=== PATIENT | male | born 1955 | race Caucasian/White ===

== ENCOUNTER 2017-03-22 21:27 | Emergency (ER) | payer MEDICAID, OTHER ==
[~2017-03-22 21:27] MED LIST: HYDR25SU4 PR; LEVO125T3 PO; METHO500 PO; XANA0.5T PO
[2017-03-22 21:43] VITALS: BP 118/79; PULSE 59; RESP 16; TEMP 97.6; O2SAT 96
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
== END 2017-03-22 23:38 | disposition home or self-care (01) ==
LOC: MERGE 21:27 → NEPD 21:27
DX: S00.90XA Unspecified superficial injury of unspecified part of head, initial encounter (principal); Z72.0 Tobacco use; W07.XXXA Fall from chair, initial encounter; Y93.84 Activity, sleeping
CPT/HCPCS: 70450; 72125; 99285

== ENCOUNTER 2017-03-24 14:20 | Emergency (ER) | payer MEDICAID, OTHER ==
[~2017-03-24] VITALS: Ht 170.2 cm; Wt 55.0 kg
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
[2017-03-24 14:43] VITALS: BP 113/62; PULSE 104; RESP 20; TEMP 98.9; O2SAT 99
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
[2017-03-24] MEDS ORDERED: KETOROLAC TROMETHAMINE 60 MG/2 ML (IM) VIAL IM ONE (15:15)
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
[2017-03-24] MEDS ORDERED: LIDOCAINE HCL 2% 20 ML VIAL INFIL ONE (15:45)
[2017-03-24] MEDS ORDERED: AZITHROMYCIN 250 MG TAB PO ONE (15:45)
[2017-03-24] MEDS ORDERED: TRAM50TA PO (16:19)
[2017-03-24] MEDS ORDERED: AZIT250T3 PO (16:19)
[2017-03-24] MEDS ORDERED: PRED20 PO (16:19)
== END 2017-03-24 16:45 | disposition home or self-care (01) ==
LOC: NEPK 14:20 → MERGE 14:20 → NEPK 16:45
DX: J18.1 Lobar pneumonia, unspecified organism (principal); Z72.0 Tobacco use
CPT/HCPCS: 71101; 96372; 99284; J0696; J1885

== ENCOUNTER 2017-03-26 10:55 | Emergency (ER) | payer MEDICAID ==
[~2017-03-26] VITALS: Ht 170.2 cm; Wt 56.0 kg
[~2017-03-26 10:55] MED LIST changes: +AZIT250T3 PO; +PRED20 PO; +TRAM50TA PO
[2017-03-26 10:56] VITALS: BP 119/71; PULSE 99; RESP 20; TEMP 98.4; O2SAT 98
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
[2017-03-26] MEDS ORDERED: LEVO.125 PO (13:52)
[2017-03-26] MEDS ORDERED: IBUP400T20 PO (13:52)
== END 2017-03-26 14:00 | disposition home or self-care (01) ==
LOC: MERGE 10:55 → NEPD 10:55
DX: M25.511 Pain in right shoulder (principal); Z76.0 Encounter for issue of repeat prescription
CPT/HCPCS: 73030; 99283

== ENCOUNTER 2017-07-17 14:22 | Emergency (ER) | payer MEDICAID ==
[~2017-07-17] VITALS: Ht 170.2 cm; Wt 59.0 kg
[~2017-07-17 14:22] MED LIST changes: +IBUP1TAB5 PO; +LEVO.125 PO
[2017-07-17 14:24] VITALS: BP 130/78; PULSE 94; RESP 18; TEMP 98.3; O2SAT 96
[2017-07-17] MEDS ORDERED: AZIT500T2 PO (15:18)
--- NOTE | 2017-07-17 15:19 | PD ---
HPI Chief Complaint: Cold / Flu Symptoms Time Seen by Provider: 15:13 Travel History International Travel<30 days: No Contact w/Intl Traveler<30days: No Traveled to known affect area: No History of Present Illness HPI 62-year-old male presents to emergency Department with complaint of headache, body aches, nasal congestion, cough 3 days. Patient requesting antibiotics. Report subjective fever yesterday, but none today. Denies chest tightness, chest pain, shortness of breath, wheezing. Denies abdominal pain, vomiting. No known sick contacts. Has not taken any medications or tried any treatments To alleviate his symptoms. Symptoms are mild in severity. Allergies to sulfa. Dr. Lafleur primary care provider and he has an appointment on Friday. Denies significant past medical history. Has no other medical complaints. No other modifying factors or associated signs and symptoms. PFSH Past Medical History Arthritis: Yes Diminished Hearing: No Gout: Yes Social History Alcohol Use: Yes Tobacco Use: Yes Substance Use: No Allergies-Medications (Allergen,Severity, Reaction): Coded Allergies: Sulfa (Sulfonamide Antibiotics) (Unverified Allergy, Severe, HANDS BLISTER , 02/12/17) Reported Meds & Prescriptions Reported Meds & Active Scripts Active Azithromycin 500 Mg Tab 500 Mg PO DAILY Ibuprofen 400 Mg Tab 400 Mg PO Q6H PRN Synthroid (Levothyroxine Sodium) 125 Mcg Tab 125 Mcg PO DAILY Tramadol (Tramadol HCl) 50 Mg Tab 50 Mg PO Q6H PRN Prednisone 20 Mg Tab 20 Mg PO BID 5 Days Azithromycin 250 Mg Tab 250 Mg PO DIRECTED Take 2 tabs (500 mg) on day 1 then 1 tab daily x 4 days. Anucort-Hc (Hydrocortisone Acetate (Rectal) 25 Mg Sup 25 Mg ND BID PRN Robaxin 500 Mg Tab (Methocarbamol) 500 Mg Tab 500 Mg PO TID PRN Reported Levothyroxine 125 mcg (Levothyroxine Sodium) 125 Mcg Tab 1 Tab PO DAILY Xanax 0.5 mg (Alprazolam) Alprazolam 0.5 mg Tab 1 Tab PO Q6H PRN Review of Systems Except as stated in HPI: all other systems reviewed are Neg Physical Exam Narrative GENERAL: Well-nourished, well-developed male patient, in no acute distress; afebrile, nontoxic-appearing SKIN: Warm and dry. No rash. HEAD: Atraumatic. Normocephalic. EYES: Pupils equal and round. No scleral icterus. No injection or drainage. ENT: Mucosa pink and moist. No erythema or exudates. No uvular edema. No uvular , palatal, or tonsillar deviation. Airway patent. EARS: Bilateral pinnae and external canals appear within normal limits. Bilateral tympanic membranes without erythema, dullness or perforation. NECK: Trachea midline. No lymphadenopathy. CARDIOVASCULAR: Regular rate and rhythm. No murmur appreciated. RESPIRATORY: No accessory muscle use. Clear to auscultation. Breath sounds equal bilaterally. No retractions or tachypnea. GASTROINTESTINAL: Abdomen soft, non-tender, nondistended. Hepatic and splenic margins not palpable. Bowel sounds are active 4 quadrants. MUSCULOSKELETAL: No obvious deformities. No clubbing. No cyanosis. No edema. NEUROLOGICAL: Awake and alert. Oriented 3. No obvious cranial nerve deficits. Motor grossly within normal limits. Normal speech. Moves all extremities. 5/5 strength to all extremities. PSYCHIATRIC: Appropriate mood and affect; insight and judgment normal. Data Data Last Documented VS Vital Signs Date Time Temp Pulse Resp B/P (MAP) Pulse Ox O2 Delivery O2 Flow Rate FiO2 07/17/17 14:24 98.3 94 18 130/78 (95) 96 Orders Orders Ed Discharge Order (07/17/17 15:19) [facility] Medical Decision Making Medical Screen Exam Complete: Yes Emergency Medical Condition: Yes Medical Record Reviewed: Yes Differential Diagnosis Viral illness, URI, influenza Narrative Course 62-year-old male with cold/flu symptoms. He is requesting antibiotics. I discussed viral illness and symptoms management and he just came for antibiotics. I ordered a flu screen and he declined. Says he needs to get a prescription for antibiotics to catch the bus. He has an appointment with his primary care provider, Dr. Lafleur, on Friday. Azithromycin prescribed for home. Instructed patient to follow up with primary care provider. Patient verbalizes understanding and agreement with treatment plan. Patient is medically cleared and stable for discharge. Discussed reasons to return to the emergency department. Patient agrees with treatment plan. The patients vital signs are stable and the patient is stable for outpatient follow-up and treatment. Patient discharged home, stable and in no acute distress. Diagnosis Primary Impression: Upper respiratory infection Qualified Codes: J06.9 - Acute upper respiratory infection, unspecified Referrals: Primary Care Physician Patient Instructions: General Instructions, Upper Respiratory Infection (ED) Additional Instructions: Antibiotics as prescribed and complete full course Ibuprofen or Tylenol as instructed and as needed for fever/pain Vamh-sly-avvnzha cough and cold medications as directed and as needed for symptom management Get plenty of sleep/rest Drink plenty of fluids to prevent dehydration; popsicles and Gatorade Use an air humidifier/turn off ceiling fans Follow-up with primary care provider Return immediately to the emergency department with worsening of symptoms Med/Other Pt SpecificInfo: Prescription(s) given Scripts Azithromycin (Azithromycin) 500 Mg Tab 500 MG PO DAILY for Infection, #5 TAB 0 Refills Prov: Mariella Hood 07/17/17 Disposition: 01 DISCHARGE HOME Condition: Stable Mariella Hood Jul 17, 2017 15:19
== END 2017-07-17 15:38 | disposition home or self-care (01) ==
LOC: NEPK 14:22
DX: J06.9 Acute upper respiratory infection, unspecified (principal); Z72.0 Tobacco use
CPT/HCPCS: 99283

== ENCOUNTER 2017-08-08 08:25 | Emergency (ER) | payer MEDICAID ==
[~2017-08-08] VITALS: Ht 170.2 cm; Wt 60.0 kg
[~2017-08-08 08:25] MED LIST changes: +AZIT500T2 PO
[2017-08-08 08:29] VITALS: BP 117/70; PULSE 86; RESP 16; TEMP 97.8; O2SAT 97
[2017-08-08] MEDS ORDERED: HYDR-3583 PO (08:44)
[2017-08-08] MEDS ORDERED: ALPR0.5T3 PO (08:44)
--- NOTE | 2017-08-08 08:48 | PD ---
HPI Chief Complaint: Cold / Flu Symptoms Time Seen by Provider: 08:42 Travel History International Travel<30 days: No Contact w/Intl Traveler<30days: No Traveled to known affect area: No History of Present Illness HPI 62-year-old male here with cough, congestion, intermittent fevers. Symptoms have been ongoing for 5 days. He reports maximal temperature 100.1 degrees yesterday. Cough is productive with yellow sputum. Denies any shortness of breath, sore throat, abdominal pain, nausea or vomiting. He was seen in mid June with similar symptoms, prescribed azithromycin which she completed. Symptoms resolved but then returned 5 days ago. He has no other complaints at this time. [facility] Past Medical History Arthritis: Yes Diminished Hearing: No Gout: Yes Thyroid Disease: Yes Influenza Vaccination: No Past Surgical History Surgical History: No Previous Surgery Social History Alcohol Use: No Tobacco Use: No Substance Use: No Allergies-Medications (Allergen,Severity, Reaction): Coded Allergies: Sulfa (Sulfonamide Antibiotics) (Unverified Allergy, Severe, HANDS BLISTER , 08/08/17) Reported Meds & Prescriptions Reported Meds & Active Scripts Active Azithromycin 500 Mg Tab 500 Mg PO DAILY Ibuprofen 400 Mg Tab 400 Mg PO Q6H PRN Synthroid (Levothyroxine Sodium) 125 Mcg Tab 125 Mcg PO DAILY Tramadol (Tramadol HCl) 50 Mg Tab 50 Mg PO Q6H PRN Prednisone 20 Mg Tab 20 Mg PO BID 5 Days Azithromycin 250 Mg Tab 250 Mg PO DIRECTED Take 2 tabs (500 mg) on day 1 then 1 tab daily x 4 days. Reported Hydrocodone-Acetaminophen 10-325 mg Tab 1 Tab PO Q6H PRN Alprazolam 0.5 Mg Tab 0.5 Mg PO Q6H PRN Review of Systems Except as stated in HPI: all other systems reviewed are Neg Physical Exam Narrative GENERAL: Well-developed well-nourished male in no acute distress SKIN: Warm and dry. HEAD: Atraumatic. Normocephalic. EYES: Pupils equal and round. No scleral icterus. No injection or drainage. ENT: No nasal bleeding or discharge. Mucous membranes pink and moist. NECK: Trachea midline. No JVD. CARDIOVASCULAR: Regular rate and rhythm. No murmur appreciated. RESPIRATORY: No accessory muscle use. Clear to auscultation. Breath sounds equal bilaterally. GASTROINTESTINAL: Abdomen soft, non-tender, nondistended. Hepatic and splenic margins not palpable. Data Data Last Documented VS Vital Signs Date Time Temp Pulse Resp B/P (MAP) Pulse Ox O2 Delivery O2 Flow Rate FiO2 08/08/17 08:46 18 Room Air 08/08/17 08:29 97.8 86 117/70 (86) 97 Orders Orders Influenzae A/B Antigen (08/08/17 08:45) Chest, Single Ap (08/08/17 ) Ed Discharge Order (08/08/17 09:55) MDM Medical Decision Making Medical Screen Exam Complete: Yes Emergency Medical Condition: Yes Medical Record Reviewed: Yes Differential Diagnosis Influenza, pneumonia, bronchitis, sinusitis Narrative Course The patient appears well. A chest x-ray and influenza antigen test were performed and they are both negative. He appears to have a viral bronchitis. Supportive care is recommended. He is stable for discharge. Diagnosis Primary Impression: Acute bronchitis Additional Instructions: Stay well-hydrated and well-nourished. Take [id number] cough and cold medications for symptom treatment. Return for any emergent medical conditions. Med/Other Pt SpecificInfo: No Change to Meds Disposition: 01 DISCHARGE HOME Condition: Stable Griffin Ruiz Aug 08, 2017 08:48
--- NOTE | 2017-08-08 09:43 | RADRPT ---
EXAM DATE/TIME: 08/08/2017 08:48 [facility] COMPARISON: CHEST SINGLE AP, August 01, 2016, 19:52. INDICATIONS : Cough and congestion. MEDICAL HISTORY : None. SURGICAL HISTORY : None. ENCOUNTER: Initial ACUITY: 3 days PAIN SCORE: 0/10 LOCATION: Bilateral chest FINDINGS: Calcified granuloma is again noted within the left upper lung field. No focal infiltrate is noted. No pulmonary edema is noted the heart is normal. Degenerative changes and scoliosis of the thoracic spi ne are noted. CONCLUSION: 1. No acute cardiopulmonary disease. 2. Degenerative changes and scoliosis of the thoracic spine. Jose Kincaid MD on August 08, 2017 at 9:40 Board Certified Radiologist. This report was verified electronically.
== END 2017-08-08 10:07 | disposition home or self-care (01) ==
LOC: NEPD 08:25
DX: J20.9 Acute bronchitis, unspecified (principal); M19.90 Unspecified osteoarthritis, unspecified site; E07.9 Disorder of thyroid, unspecified
CPT/HCPCS: 71045; 87804; 99284

== ENCOUNTER 2017-11-03 09:35 | Emergency (ER) | payer OTHER, MEDICAID ==
[~2017-11-03] VITALS: Ht 170.2 cm; Wt 50.0 kg
[~2017-11-03 09:35] MED LIST changes: +ALPR0.5T3 PO; +HYDR-3583 PO; -HYDR25SU4 PR; -LEVO125T3 PO; -METHO500 PO; -XANA0.5T PO
[2017-11-03 09:38] VITALS: BP 119/67; PULSE 95; RESP 19; TEMP 98; O2SAT 97
[2017-11-03 10:24] VITALS: PULSE 94; RESP 18; O2SAT 98
--- NOTE | 2017-11-03 11:22 | RADRPT ---
EXAM DATE/TIME: 11/03/2017 10:55 [facility] COMPARISON: Chest x-ray July 14, 2014. INDICATIONS : Palpable lump on upper left chest. MEDICAL HISTORY : Smoker. SURGICAL HISTORY : None. ENCOUNTER: Initial ACUITY: 2 weeks PAIN SCORE: 10/10 LOCATION: Left chest FINDINGS: PA and lateral views the chest show lungs to be hyperaerated. No infiltrate or effusion. A 5 mm nodul e projects over the lateral aspect of the left upper lobe. This is unchanged from the 2015 study. Hea rt is normal in size. Mediastinal structures are unremarkable. Mild scoliotic curvature. CONCLUSION: 1. Hyperinflation suggesting COPD. No acute infiltrate or effusion. Pawel Vegas Jr., MD on November 03, 2017 at 11:18 Board Certified Radiologist. This report was verified electronically.
[2017-11-03] MEDS ORDERED: AZIT250T3 PO (11:36)
[2017-11-03] MEDS ORDERED: ALBUAER3 INH (11:36)
--- NOTE | 2017-11-03 11:36 | PD ---
HPI Chief Complaint: Respiratory Symptoms Time Seen by Provider: 09:40 Travel History International Travel<30 days: No Contact w/Intl Traveler<30days: No Traveled to known affect area: No History of Present Illness HPI This is a 62-year-old male who presents to the emergency department with a productive cough with green sputum that has been going on for 3 weeks, constant , moderate severity with no fevers or chills. He also has a lump on his left chest which has been there for several months. He smokes 1-2 cigarettes a week. PFSH Past Medical History Arthritis: Yes Diminished Hearing: No Gout: Yes Thyroid Disease: Yes Social History Alcohol Use: No Tobacco Use: No (denies) Substance Use: No Allergies-Medications (Allergen,Severity, Reaction): Coded Allergies: Sulfa (Sulfonamide Antibiotics) (Unverified Allergy, Severe, HANDS BLISTER , 11/03/17) Reported Meds & Prescriptions Reported Meds & Active Scripts Active Synthroid (Levothyroxine Sodium) 125 Mcg Tab 125 Mcg PO DAILY Reported Hydrocodone-Acetaminophen 10-325 mg Tab 1 Tab PO Q6H PRN Alprazolam 0.5 Mg Tab 0.5 Mg PO Q6H PRN Review of Systems Except as stated in HPI: all other systems reviewed are Neg Physical Exam Narrative GENERAL: Thin SKIN: Focused skin assessment warm and dry. HEAD: Atraumatic. Normocephalic. EYES: Pupils equal and round. No injection or drainage. ENT: Moist mucous membranes NECK: Trachea midline. CARDIOVASCULAR: Regular rate and rhythm. No murmur appreciated. RESPIRATORY: Clear to auscultation. Breath sounds equal bilaterally. GASTROINTESTINAL: Abdomen soft, non-tender, nondistended. MUSCULOSKELETAL: Some swelling of the left breast with no warmth or erythema NEUROLOGICAL: Awake and alert. No obvious cranial nerve deficits. Moving all extremities. PSYCHIATRIC: Appropriate mood and affect; insight and judgment normal. Data Data Last Documented VS Vital Signs Date Time Temp Pulse Resp B/P (MAP) Pulse Ox O2 Delivery O2 Flow Rate FiO2 11/03/17 10:24 93 18 98 Room Air 11/03/17 09:38 98.0 119/67 (84) Orders Orders Chest, Pa & Lat (11/03/17 ) [facility] Medical Decision Making Medical Screen Exam Complete: Yes Emergency Medical Condition: Yes Interpretation(s) Chest x-ray: Hyperinflation Differential Diagnosis COPD exacerbation, bronchitis, pneumonia, cancer Narrative Course This is a 62-year-old male who presents to the emergency department with a productive cough with green sputum as well as a lump over his left breast. Chest x-ray demonstrates hyperinflation consistent with likely COPD. Patient will be discharged with azithromycin and inhaler. He should follow-up with his primary care physician. He is not hypoxic and otherwise appears well and I suspect this is consistent with bronchitis. Regarding his lump on his left breast this needs to be followed up as an outpatient by his primary care physician. Diagnosis Primary Impression: Bronchitis Patient Instructions: General Instructions Additional Instructions: If you develop severe shortness of breath, chest pain, or difficulty breathing return to the emergency department. Use albuterol every 4 hours for the next 2 days. Then use as needed for wheezing. Complete your course of antibiotics. Follow-up with your primary care physician regarding the lump on your left breast as this needs to be evaluated further as an outpatient. Med/Other Pt SpecificInfo: Prescription(s) given Scripts Albuterol 8.5 GM Inh (Proair Hfa 8.5 GM Inh) 90 Mcg/Act Aer 2 PUFF INH Q4-6H Y for SHORTNESS OF BREATH, #1 INHALER 0 Refills 108 mcg/actuation Prov: Hortencia Juarez MD 11/03/17 Azithromycin (Azithromycin) 250 Mg Tab 250 MG PO DIRECTED for Infection, #6 TAB 0 Refills Take 2 tabs (500 mg) on day 1 then 1 tab daily x 4 days. Prov: Hortencia Juarez MD 11/03/17 Disposition: 01 DISCHARGE HOME Condition: Stable Hortencia Juarez MD November 03, 2017 11:36
== END 2017-11-03 11:45 | disposition home or self-care (01) ==
LOC: NEPE 09:35
DX: J40 Bronchitis, not specified as acute or chronic (principal); M19.90 Unspecified osteoarthritis, unspecified site; E07.9 Disorder of thyroid, unspecified; Z72.0 Tobacco use
CPT/HCPCS: 71046; 99283

== ENCOUNTER 2017-11-06 09:50 | Emergency (ER) | payer MEDICAID, OTHER ==
[~2017-11-06] VITALS: Ht 170.2 cm; Wt 60.0 kg
[~2017-11-06 09:50] MED LIST changes: +ALBUAER3 INH; -AZIT500T2 PO; -IBUP1TAB5 PO; -PRED20 PO; -TRAM50TA PO
[2017-11-06 09:59] VITALS: BP 140/63; PULSE 91; RESP 20; TEMP 98.5; O2SAT 98
--- NOTE | 2017-11-06 12:02 | PD ---
HPI Chief Complaint: Respiratory Symptoms Time Seen by Provider: 11:17 Travel History International Travel<30 days: No Contact w/Intl Traveler<30days: No Traveled to known affect area: No History of Present Illness HPI This patient was seen here yesterday for bronchitis. He is prescribed albuterol inhaler and Z-Truman. He is a mild smoker. He reports that he is not better and so came back to get rechecked. No fever. Symptom severity is mild PFSH Past Medical History Arthritis: Yes Anxiety: Yes Diminished Hearing: No Gout: Yes Respiratory: Yes Thyroid Disease: Yes Influenza Vaccination: No Past Surgical History Surgical History: No Previous Surgery Social History Alcohol Use: No Tobacco Use: Yes (07/01 PPW) Substance Use: No Allergies-Medications (Allergen,Severity, Reaction): Coded Allergies: Sulfa (Sulfonamide Antibiotics) (Unverified Allergy, Severe, HANDS BLISTER , 11/03/17) Reported Meds & Prescriptions Reported Meds & Active Scripts Active Proair Hfa 8.5 GM Inh (Albuterol Sulfate) 90 Mcg/Act Aer 2 Puff INH Q4-6H PRN 108 mcg/actuation Azithromycin 250 Mg Tab 250 Mg PO DIRECTED Take 2 tabs (500 mg) on day 1 then 1 tab daily x 4 days. Synthroid (Levothyroxine Sodium) 125 Mcg Tab 125 Mcg PO DAILY Reported Hydrocodone-Acetaminophen 10-325 mg Tab 1 Tab PO Q6H PRN Alprazolam 0.5 Mg Tab 0.5 Mg PO Q6H PRN Review of Systems General / Constitutional: No: Fever HENT: No: Headaches Respiratory: Positive: Cough Gastrointestinal: No: Abdominal Pain Physical Exam Narrative GENERAL: Well-nourished, well-developed patient in no apparent distress. SKIN: Focused skin assessment reveals no rash and nodules. Skin is Warm and dry. HEAD: Atraumatic. Normocephalic. EYES: Pupils equal and round. No scleral icterus. No injection or drainage. ENT: No nasal bleeding or discharge. Mucous membranes pink and moist. NECK: Trachea midline. No JVD. CARDIOVASCULAR: Regular rate and rhythm. No murmur appreciated. RESPIRATORY: No accessory muscle use. Clear to auscultation. Breath sounds equal bilaterally. GASTROINTESTINAL: Abdomen soft, non-tender, nondistended. Hepatic and splenic margins not palpable. MUSCULOSKELETAL: No obvious deformities. No clubbing. No cyanosis. No edema. Has a small tender soft rubbery consistency mass near the left nipple that is freely mobile NEUROLOGICAL: Awake and alert. No obvious cranial nerve deficits. Motor grossly within normal limits. Normal speech. PSYCHIATRIC: Appropriate mood and affect; insight and judgment normal. Data Data Last Documented VS Vital Signs Date Time Temp Pulse Resp B/P (MAP) Pulse Ox O2 Delivery O2 Flow Rate FiO2 11/06/17 11:16 100 Room Air 11/06/17 09:59 98.5 91 20 140/63 (88) MDM Medical Decision Making Medical Screen Exam Complete: Yes Emergency Medical Condition: Yes Medical Record Reviewed: Yes Differential Diagnosis Bronchitis, pneumonia, URI Narrative Course I have reviewed the patient's electronic medical record. Reviewed yesterday's visit including normal chest x-ray Recommend he continue his medications. This will likely resolve. Regarding his chest wall lesion he has an appointment with his primary physician in 8 days to have this evaluated. Diagnosis Primary Impression: Acute bronchitis Qualified Codes: J20.9 - Acute bronchitis, unspecified Additional Impression: Mass of chest wall, left Additional Instructions: The patient was advised to follow up with their physician and return if they worsen. Med/Other Pt SpecificInfo: Other Disposition: 01 DISCHARGE HOME Condition: Stable Sridhar Leavitt MD November 06, 2017 12:02
== END 2017-11-06 12:18 | disposition home or self-care (01) ==
LOC: NEPD 09:50
DX: J20.9 Acute bronchitis, unspecified (principal); R22.2 Localized swelling, mass and lump, trunk; M19.90 Unspecified osteoarthritis, unspecified site; F41.9 Anxiety disorder, unspecified; M10.9 Gout, unspecified; E07.9 Disorder of thyroid, unspecified; F17.200 Nicotine dependence, unspecified, uncomplicated; Z88.2 Allergy status to sulfonamides; Z79.899 Other long term (current) drug therapy
CPT/HCPCS: 99281

== ENCOUNTER 2017-11-18 13:45 | Emergency (ER) | payer MEDICAID ==
[~2017-11-18] VITALS: Ht 170.2 cm; Wt 58.0 kg
[2017-11-18 14:14] VITALS: BP 127/77; PULSE 89; RESP 16; O2SAT 97
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
--- NOTE | 2017-11-18 15:20 | RADRPT ---
EXAM DATE: 11/18/2017 3:11 PM EDT AGE/SEX: 62 years / Male INDICATIONS: Right rib pain, no known injury. CLINICAL DATA: This is the patient's initial encounter. Patient reports that signs and symptoms have been present for 1 day and indicates a pain score of Nonresponsive. MEDICAL/SURGICAL HISTORY: Non-responsive. Non-responsive. COMPARISON: No prior [facility] exams available for comparison. FINDINGS: There are nondisplaced rib fractures involving the anterolateral aspect of the right third and fourth ribs. The rest of the bony structures are grossly intact. There is no evidence of pneumot horax or pleural effusion. The right lung is grossly clear. CONCLUSION: Nondisplaced fractures involving the third and fourth right ribs. Electronically signed by: Ozzy Liang MD 11/18/2017 3:19 PM EDT
--- NOTE | 2017-11-18 15:30 | RADRPT ---
EXAM DATE: 11/18/2017 3:12 PM EDT AGE/SEX: 62 years / Male INDICATIONS: Right foot pain, no known injury. CLINICAL DATA: This is the patient's initial encounter. Patient reports that signs and symptoms have been present for 1 day and indicates a pain score of 0/10. MEDICAL/SURGICAL HISTORY: Non-responsive. Non-responsive. COMPARISON: No prior [facility] exams available for comparison. FINDINGS: There is a faint lucency at the base of the fourth proximal phalanx. This may be a nondisp laced fracture. Recommend correlation with point tenderness. There appears to been resorption of the middle phalanx of the second, third, fourth and fifth toes. There is irregularity involving the DIP j oint of the first toe. These findings suggest some type of arthritis such as rheumatoid arthritis. Th is would need to be correlated with patient's history. The rest the bony structures are grossly intac t. No joint dislocation. The soft tissues are grossly unremarkable. CONCLUSION: 1. There is a faint lucency at the base of the fourth proximal phalanx suspicious for nondisplaced f racture. Age is unclear. Recommend correlation with point tenderness. 2. Resumption of the middle phalanx of the second through fifth toes. Irregularity of the first DIP joint. Possible rheumatoid arthritis. Correlate with patient's medical history and laboratory values. Electronically signed by: Ozzy Liang MD 11/18/2017 3:28 PM EDT
--- NOTE | 2017-11-18 15:58 | RADRPT ---
EXAM DATE: 11/18/2017 3:43 PM EDT AGE/SEX: 62 years / Male INDICATIONS: Cephalgia CLINICAL DATA: This is the patient's initial encounter. Patient reports that signs and symptoms have been present for 1 day and indicates a pain score of 3/10. MEDICAL/SURGICAL HISTORY: . Thyroid disease, respiratory disorder . RADIATION DOSE: 56.35 CTDI (mGy) COMPARISON: No prior [facility] exams available for comparison. TECHNIQUE: CT of the head without contrast. Using automated exposure control and adjustment of the mA and/or kV according to patient size, radiation dose was kept as low as reasonably achievable to ob tain optimal diagnostic quality images. FINDINGS: Cerebrum: The ventricles are normal for age. No evidence of midline shift, mass lesion, h emorrhage or acute infarction. No extraaxial fluid collections are seen. Posterior Fossa: The cerebellum and brainstem are intact. The 4th ventricle is midline. The cerebe llopontine angle is unremarkable. Extracranial: The visualized portion of the orbits is intact. Skull: The calvaria is intact. No evidence of skull fracture. CONCLUSION: Negative exam. Electronically signed by: Ruel Melo MD 11/18/2017 3:56 PM EDT
[2017-11-18] MEDS ORDERED: ACETAMINOPHEN/HYDROcodone 325 MG/5 MG TAB PO ONE (16:00)
[2017-11-18] MEDS ORDERED: HYDR-3516 PO (16:06)
[2017-11-18] MEDS ORDERED: IBUP1TAB7 PO (16:06)
[2017-11-18] MEDS ORDERED: LIDO1PAD52 TOPICAL (16:06)
== END 2017-11-18 16:32 ==
LOC: NEPE 13:45
DX: S22.41XA Multiple fractures of ribs, right side, initial encounter for closed fracture (principal); Y04.2XXA Assault by strike against or bumped into by another person, initial encounter
CPT/HCPCS: 70450; 71101; 73630; 99284; L3260

== ENCOUNTER 2017-11-19 21:01 | Emergency (ER) | payer MEDICAID ==
[~2017-11-19] VITALS: Ht 170.2 cm; Wt 57.0 kg
[~2017-11-19 21:01] MED LIST changes: -AZIT250T3 PO; +HYDR-3516 PO; +IBUP1TAB7 PO; +LIDO1PAD52 TOPICAL
[2017-11-19 21:16] VITALS: BP 124/77; PULSE 80; RESP 18; TEMP 97.9; O2SAT 100
== END 2017-11-19 21:23 | disposition left against medical advice (07) ==
LOC: NED 21:01
DX: R52 Pain, unspecified (principal)
CPT/HCPCS: 99281

== ENCOUNTER 2017-12-17 03:43 | Emergency (ER) | payer MEDICAID ==
[~2017-12-17] VITALS: Ht 165.1 cm; Wt 55.0 kg
[2017-12-17 03:58] VITALS: BP 134/79; PULSE 89; RESP 18; TEMP 98.2; O2SAT 99
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
--- NOTE | 2017-12-17 04:33 | RADRPT ---
EXAM DATE: 12/17/2017 4:23 AM EDT AGE/SEX: 62 years / Male INDICATIONS: Pain in left wrist from fall. CLINICAL DATA: This is the patient's initial encounter. Patient reports that signs and symptoms have been present for 1 day and indicates a pain score of 5/10. MEDICAL/SURGICAL HISTORY: Non-responsive. Non-responsive. COMPARISON: No prior exams available for comparison. FINDINGS: There is a transverse fracture through the scaphoid waist. The distal radius is unremarkable. The res t of the carpal bones are unremarkable. CONCLUSION: Scaphoid waist fracture without significant displacement Electronically signed by: Jaya Canales MD 12/17/2017 4:32 AM EDT
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
[2017-12-17] MEDS ORDERED: HYDR-3516 PO (04:54)
[2017-12-17] MEDS ORDERED: PERC5TAB12 PO (05:17)
== END 2017-12-17 05:33 | disposition home or self-care (01) ==
LOC: NEPC 03:43
DX: S62.025A Nondisplaced fracture of middle third of navicular [scaphoid] bone of left wrist, initial encounter for closed fracture (principal); R07.81 Pleurodynia; M54.2 Cervicalgia; Y00.XXXA Assault by blunt object, initial encounter; Y93.55 Activity, bike riding; S22.41XD Multiple fractures of ribs, right side, subsequent encounter for fracture with routine healing; X58.XXXD Exposure to other specified factors, subsequent encounter; F41.9 Anxiety disorder, unspecified; M19.90 Unspecified osteoarthritis, unspecified site; F17.200 Nicotine dependence, unspecified, uncomplicated
CPT/HCPCS: 70450; 71101; 72125; 73110; 99284; L3808

== ENCOUNTER 2017-12-18 15:38 | Emergency (ER) | payer MEDICAID ==
[~2017-12-18] VITALS: Ht 170.2 cm; Wt 58.0 kg
[~2017-12-18 15:38] MED LIST changes: +PERC5TAB12 PO
[2017-12-18 15:55] VITALS: BP 139/90; PULSE 85; RESP 16; TEMP 97.6; O2SAT 99
--- NOTE | 2017-12-18 17:28 | PD ---
HPI Chief Complaint: Medical Clearance Time Seen by Provider: 17:00 Travel History International Travel<30 days: No Contact w/Intl Traveler<30days: No Traveled to known affect area: No History of Present Illness HPI 62-year-old male presents to the emergency department requesting a stronger pain medication. His left upper arm is in a fracture splint. He said the pain medication that he was given is not working. But then he states that he took the prescription to a pharmacy and they would not fill it for him. He says he was supposed to see Dr. Lafleur this morning, but his almost , and he missed the appointment. Could not tell me who Dr. Lafleur was. He also told me that Dr. Lafleur said that he can have OxyContin for his pain. Onset unknown. Duration unknown. Symptoms are mild in severity. No known aggravating or relieving factors. Allergies to sulfa. Has no other medical complaints. No other modifying factors or associated signs and symptoms per History Social History Alcohol Use: No Tobacco Use: Yes (/2 PPW) Allergies-Medications (Allergen,Severity, Reaction): Coded Allergies: Sulfa (Sulfonamide Antibiotics) (Unverified Allergy, Severe, HANDS BLISTER , 12/18/17) Reported Meds & Prescriptions Reported Meds & Active Scripts Active Percocet (Oxycodone-Acetaminophen) 5-325 mg Tab 1 Tab PO Q6H PRN Ibuprofen 800 Mg Tab 800 Mg PO Q6HR PRN Lidocaine Patch 12 HR (Lidocaine) 5 % Patch 1 Patch TOPICAL DAILY PRN Remove patch after 12 hours Hydrocodone-Acetamin 5-325 mg (Hydrocodone/Acetaminophen) 5 Mg-325 Mg Tablet 1 Tab PO QID PRN Proair Hfa 8.5 GM Inh (Albuterol Sulfate) 90 Mcg/Act Aer 2 Puff INH Q4-6H PRN 108 mcg/actuation Synthroid (Levothyroxine Sodium) 125 Mcg Tab 125 Mcg PO DAILY Reported Hydrocodone-Acetaminophen 10-325 mg Tab 1 Tab PO Q6H PRN Alprazolam 0.5 Mg Tab 0.5 Mg PO Q6H PRN Review of Systems Except as stated in HPI: all other systems reviewed are Neg Physical Exam Narrative GENERAL: Well-nourished, well-developed patient, in no acute distress ; disheveled SKIN: Warm and dry. HEAD: Atraumatic. Normocephalic. EYES: Pupils equal and round. No scleral icterus. No injection or drainage. ENT: Mucosa pink and moist. Airway patent. NECK: Trachea midline. CARDIOVASCULAR: Regular rate. RESPIRATORY: No accessory muscle use. GASTROINTESTINAL: Flat. MUSCULOSKELETAL: Left upper extremity is in a soft splint; it appears like it has been removed. no obvious deformities. No clubbing. No cyanosis. No edema. NEUROLOGICAL: Awake and alert. Oriented 3. No obvious cranial nerve deficits. Motor grossly within normal limits. Normal speech. PSYCHIATRIC: Appropriate mood and affect; insight and judgment normal. Data Data Last Documented VS Vital Signs Date Time Temp Pulse Resp B/P (MAP) Pulse Ox O2 Delivery O2 Flow Rate FiO2 12/18/17 15:55 97.6 85 16 139/90 (106) 99 MDM Medical Screen Exam Complete: Yes Emergency Medical Condition: No Differential Diagnosis Wrist fracture, narcotic seeking Narrative Course 62-year-old male was seen yesterday with a left wrist fracture demanding pain medications. He was prescribed 10 5 mg Percocets yesterday. He first told me the Lortab that he was prescribed is not working for him. He then proceeded to tell me that the pharmacy will not fill his pain medication. His fracture splint to his left upper arm appears as if it has been loosened or partially removed. The orthotec reapplied his splint. I instructed the patient to follow -up with hand surgeon as he was advised yesterday. Vital signs are stable and the patient is stable for outpatient follow-up and treatment. The patient has no urgent or emergent medical complaints. There is no emergent or urgent medical need at this time. I instructed the patient to follow up with their primary care provider. A medical screening exam was performed: At the time of evaluation the presenting medical condition was determined not to be of an emergent nature. The patient was given the option of receiving additional care, but declined. Patient was given options for additional community resources from which to obtain care. The Patient Has Been advised to seek medical attention for their presenting complaint. The patient has been advised to return to the ER at any time if an emergent condition develops. Primary Impression: Encounter for medical screening examination Disposition: 07 AGAINST MEDICAL ADVICE Mariella Hood Dec 18, 2017 17:28
== END 2017-12-18 18:03 | disposition left against medical advice (07) ==
LOC: NEPK 15:38
DX: S62.102D Fracture of unspecified carpal bone, left wrist, subsequent encounter for fracture with routine healing (principal); F17.200 Nicotine dependence, unspecified, uncomplicated; X58.XXXD Exposure to other specified factors, subsequent encounter; Z79.899 Other long term (current) drug therapy; Z88.2 Allergy status to sulfonamides
CPT/HCPCS: 99281

== ENCOUNTER 2017-12-20 09:23 | Emergency (ER) | payer MEDICAID ==
[~2017-12-20] VITALS: Ht 170.2 cm; Wt 60.0 kg
[2017-12-20 09:32] VITALS: BP 132/76; PULSE 84; RESP 18; TEMP 98.7
[2017-12-20] MEDS ORDERED: KETOROLAC TROMETHAMINE 60 MG/2 ML (IM) VIAL IM ONE (10:00)
[2017-12-20] MEDS ORDERED: CYCLOBENZAPRINE HCL 10 MG TAB PO ONE (10:00)
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
--- NOTE | 2017-12-20 10:40 | RADRPT ---
EXAM DATE: 12/20/2017 10:35 AM EDT AGE/SEX: 62 years / Male INDICATIONS: Pain CLINICAL DATA: This is the patient's initial encounter. Patient reports that signs and symptoms have been present for 1 day and indicates a pain score of Nonresponsive. MEDICAL/SURGICAL HISTORY: Non-responsive. Non-responsive. COMPARISON: No prior exams available for comparison. FINDINGS: Bony structures are intact and in normal alignment. Joints are intact without dislocation or signifi cant arthropathy. Osseous density is normal. Soft tissues are unremarkable. No radiopaque foreign bodies seen. CONCLUSION: No acute fracture right ankle Electronically signed by: David Zazueta MD 12/20/2017 10:39 AM EDT
--- NOTE | 2017-12-20 10:41 | RADRPT ---
EXAM DATE: 12/20/2017 10:37 AM EDT AGE/SEX: 62 years / Male INDICATIONS: Pain CLINICAL DATA: This is the patient's initial encounter. Patient reports that signs and symptoms have been present for 1 day and indicates a pain score of Nonresponsive. MEDICAL/SURGICAL HISTORY: Non-responsive. Non-responsive. COMPARISON: No prior exams available for comparison. FINDINGS: Bony structures are intact and in normal alignment. Joints are intact without dislocation or signifi cant arthropathy. Osseous density is normal. Soft tissues are unremarkable. No radiopaque foreign bodies seen. CONCLUSION: No acute fracture right shoulder Electronically signed by: David Zazueta MD 12/20/2017 10:40 AM EDT
--- NOTE | 2017-12-20 10:46 | RADRPT ---
EXAM DATE: 12/20/2017 10:39 AM EDT AGE/SEX: 62 years / Male INDICATIONS: Pain CLINICAL DATA: This is the patient's initial encounter. Patient reports that signs and symptoms have been present for 1 day and indicates a pain score of Nonresponsive. MEDICAL/SURGICAL HISTORY: Non-responsive. Non-responsive. COMPARISON: No prior exams available for comparison. FINDINGS: Bony structures are intact and in normal alignment. Joints are intact without dislocation or signifi cant arthropathy. Osseous density is normal. Soft tissues are unremarkable. No radiopaque foreign bodies seen. CONCLUSION: Unremarkable left ankle Electronically signed by: David Zazueta MD 12/20/2017 10:45 AM EDT
== END 2017-12-20 11:36 | disposition home or self-care (01) ==
LOC: NEPD 09:23
DX: T14.8XXA Other injury of unspecified body region, initial encounter (principal); M25.511 Pain in right shoulder; M25.572 Pain in left ankle and joints of left foot; M25.571 Pain in right ankle and joints of right foot; W19.XXXA Unspecified fall, initial encounter; Y92.811 Bus as the place of occurrence of the external cause
CPT/HCPCS: 73030; 73610; 96372; 99284; J1885; L3808